=== PATIENT | male | born 1995 | race Caucasian/White ===

== ENCOUNTER → 2018-12-12 | Outpatient (REF) | payer BC | LOC: M LAB REF 12:50 | PROVIDERS: ATTEND Physician Assistant | DX: J02.9 Acute pharyngitis, unspecified (principal) ==

== ENCOUNTER → 2021-06-28 | Outpatient (CLI) | payer BC | LOC: M RAD 09:01 | PROVIDERS: ATTEND Nurse Practitioner Family | DX: N18.2 Chronic kidney disease, stage 2 (mild) (principal); I12.9 Hypertensive chronic kidney disease with stage 1 through stage 4 chronic kidney disease, or unspecified chronic kidney disease ==

== ENCOUNTER → 2021-12-08 | Outpatient (REF) | payer BC ==
[2021-12-08 14:18] LABS: ALBUMIN 4.3 GM/DL (3.2-5.2); BLOOD UREA NITROGEN 18 MG/DL (7-18); CALCIUM LEVEL 9.7 MG/DL (8.5-10.1); CARBON DIOXIDE LEVEL 32 MEQ/L (21-32); CHLORIDE LEVEL 103 MEQ/L (98-107); CREATININE FOR GFR 1.04 MG/DL (0.70-1.30); GLOMERULAR FILTRATION RATE > 60.0 (>60); GLUCOSE, FASTING 99 MG/DL (70-100); PHOSPHORUS LEVEL 3.5 MG/DL (2.5-4.9); POTASSIUM SERUM 3.9 MEQ/L (3.5-5.1); SODIUM LEVEL 138 MEQ/L (136-145)
== END ==
LOC: M LAB REF 13:08
PROVIDERS: ATTEND Nurse Practitioner Family
DX: N17.2 Acute kidney failure with medullary necrosis (principal)

== ENCOUNTER 2022-05-23 16:08 | Emergency (ER) | payer BC ==
[~2022-05-23] VITALS: Ht 170.2 cm; Wt 90.9 kg
[2022-05-23] MEDS ORDERED: HYDR-3490 PO (16:32)
[2022-05-23] MEDS ORDERED: LOSA100T45 PO (16:32)
[2022-05-23 17:44] LABS: BASO # 0.1 10^3/uL (0.0-0.2); BASO % 0.4 % (0.0-1.0); EOS # 0.1 10^3/uL (0.0-0.5); EOS % 0.8 % (0.0-3.0); HEMATOCRIT 45.9 % (42.0-52.0); HEMOGLOBIN 16.6 g/dl (13.5-17.5); LYMPH # 3.2 10^3/uL (1.5-5.0); MEAN CORPUSCULAR HEMOGLOBIN 30.7 pg (27.0-33.0); MEAN CORPUSCULAR HGB CONC 36.2 g/dl (32.0-36.5); MEAN CORPUSCULAR VOLUME 84.8 fl (80.0-96.0); MONO # 0.7 10^3/uL (0.0-0.8); NEUTROPHILS # 7.8 10^3/uL (1.5-8.5); NEUTROPHILS % 65.4 % (36.0-66.0); PLATELET COUNT, AUTOMATED 270 10^3/uL (150-450); RED BLOOD COUNT 5.41 10^6/uL (4.30-6.10); WHITE BLOOD COUNT 11.9 10^3/uL (4.0-10.0)
[2022-05-23 18:11] LABS: BLOOD UREA NITROGEN 20 MG/DL (9-23); CALCIUM LEVEL 9.1 MG/DL (8.5-10.1); CARBON DIOXIDE LEVEL 25 MMOL/L (20-31); CHLORIDE LEVEL 100 MMOL/L (98-107); CREATININE FOR GFR 0.82 MG/DL (0.70-1.30); GLOMERULAR FILTRATION RATE > 60.0 (>60); GLUCOSE, FASTING 90 MG/DL (60-100); POTASSIUM SERUM 3.9 MMOL/L (3.5-5.1); SODIUM LEVEL 138 MMOL/L (136-145)
[2022-05-23 20:23] VITALS: BP 155/96
== END 2022-05-23 21:56 | disposition left against medical advice (07) ==
LOC: M ED 16:08
DX: Z53.21 Procedure and treatment not carried out due to patient leaving prior to being seen by health care provider (principal)

== ENCOUNTER → 2022-06-09 | Outpatient (REF) | payer BC ==
[~2022-06-09] MED LIST: HYDR-3490 PO; LOSA100T45 PO
[2022-06-09 18:11] LABS: CREATININE, URINE 148.7 MG/DL; MALB URINE SIEMENS < 3.0 MG/DL
== END ==
LOC: M LAB REF 17:05
PROVIDERS: ATTEND Nurse Practitioner Family
DX: I10 Essential (primary) hypertension (principal)

== ENCOUNTER → 2025-03-26 | Outpatient (REF) | payer BC ==
[~2025-03-26] MED LIST changes: -LOSA100T45 PO; +LOSA100T46 PO
[2025-03-26 18:47] LABS: FREE T4 1.66 NG/DL (0.89-1.76)
== END ==
LOC: M LAB REF 16:46
PROVIDERS: ATTEND Nurse Practitioner Family
DX: R53.83 Other fatigue (principal)